=== PATIENT | female | born 1970 | race Two or more races ===

== ENCOUNTER 2017-10-01 10:53 | Day surgery (SDC) | payer OTHER ==
[~2017-10-01] VITALS: Ht 162.6 cm; Wt 74.8 kg
[2017-10-01] MEDS ORDERED: MIDAZOLAM 2 MG/2 ML VIAL ONE (12:14)
[2017-10-01] MEDS ORDERED: fentaNYL 0.05 MG/ML VIAL ONE (12:14)
[2017-10-01] MEDS ORDERED: MIDAZOLAM 2 MG/2 ML VIAL IVP ONE (13:00)
== END 2017-10-01 13:54 | disposition home or self-care (01) ==
LOC: MOR 10:53 → MMU 10:54 → MOR 13:54
PROVIDERS: ATTEND Internal Medicine Gastroenterology
DX: K22.2 Esophageal obstruction (principal); K44.9 Diaphragmatic hernia without obstruction or gangrene; F41.9 Anxiety disorder, unspecified; E66.3 Overweight; Z79.899 Other long term (current) drug therapy; Z68.28 Body mass index [BMI] 28.0-28.9, adult; Z90.710 Acquired absence of both cervix and uterus
CPT/HCPCS: 36415; 43239; 86677; J2250; J7030; J3010

== ENCOUNTER 2023-03-07 06:32 | Day surgery (SDC) | payer OTHER ==
[~2023-03-07] VITALS: Ht 160 cm; Wt 78.0 kg
[~2023-03-07 06:32] MED LIST: ALBU10.7; AMLO-3 PO; ASPI-1821 PO; ATA25 PO; ATOR10TA51 PO; HYDR25TA33 PO; LORA-1526 PO; MECL-231 PO; MONT-72; [UNRECOGNIZED DRUG - CODE] NS; [UNRECOGNIZED DRUG - CODE] PO
[2023-03-07] MEDS ORDERED: LIDOCAINE 2% 100 MG/5 ML UJET TP ONE (07:31)
[2023-03-07] MEDS ORDERED: fentaNYL citrate 0.05 MG/ML VIAL ONE (07:31)
[2023-03-07] MEDS ORDERED: fentaNYL citrate 0.05 MG/ML VIAL IVP ONE (08:50)
== END 2023-03-07 09:15 | disposition home or self-care (01) ==
LOC: MDS 06:32 → MMU 06:34 → MDS 09:15
PROVIDERS: ATTEND Internal Medicine Gastroenterology
DX: R19.5 Other fecal abnormalities (principal); K21.9 Gastro-esophageal reflux disease without esophagitis; I10 Essential (primary) hypertension; M19.90 Unspecified osteoarthritis, unspecified site; Z90.710 Acquired absence of both cervix and uterus
CPT/HCPCS: 45378; J3010